=== PATIENT | female | born 1990 ===

== ENCOUNTER 2017-08-23 14:53 | Outpatient (CLI) | payer OTHER | END 2017-08-23 14:54 | disposition home or self-care (01) | LOC: SC 14:53 | PROVIDERS: ATTEND Internal Medicine Pulmonary Disease | DX: G47.21 Circadian rhythm sleep disorder, delayed sleep phase type (principal) | CPT/HCPCS: 99203; 99212 ==

== ENCOUNTER 2017-10-14 22:02 | Outpatient (CLI) | payer OTHER | END 2017-10-14 22:03 | disposition home or self-care (01) | LOC: SC 22:02 | PROVIDERS: ATTEND Internal Medicine Pulmonary Disease | DX: G47.61 Periodic limb movement disorder (principal); G47.10 Hypersomnia, unspecified; R06.83 Snoring; R53.83 Other fatigue | CPT/HCPCS: 95810 ==

== ENCOUNTER 2017-12-20 08:55 | Outpatient (CLI) | payer OTHER | END 2017-12-20 08:56 | disposition home or self-care (01) | LOC: SC 08:55 | PROVIDERS: ATTEND Nurse Practitioner Family | DX: G47.61 Periodic limb movement disorder (principal); R53.83 Other fatigue; R06.83 Snoring | CPT/HCPCS: 99212; 99214 ==

== ENCOUNTER 2018-01-25 11:14 | Outpatient (CLI) | payer OTHER | END 2018-01-25 11:15 | disposition home or self-care (01) | LOC: SC 11:14 | PROVIDERS: ATTEND Nurse Practitioner Family | DX: G47.61 Periodic limb movement disorder (principal); G25.81 Restless legs syndrome; R53.83 Other fatigue | CPT/HCPCS: 99212; 99214 ==

== ENCOUNTER 2018-03-08 13:27 | Outpatient (CLI) | payer OTHER | END 2018-03-08 13:28 | disposition home or self-care (01) | LOC: SC 13:27 | PROVIDERS: ATTEND Nurse Practitioner Family | DX: G25.81 Restless legs syndrome (principal) | CPT/HCPCS: 99212; 99214 ==